=== PATIENT | female | born 1985 | race Caucasian/White ===

== ENCOUNTER 2018-01-26 23:40 | Emergency (ER) | payer OTHER ==
[2018-01-27 00:02] VITALS: PULSE 99; RESP 20; TEMP 97.9
[2018-01-27] MEDS ORDERED: ONDANSETRON 4 MG ODT BU ONE (00:12)
[2018-01-27] MEDS ORDERED: ONDANSETRON 4 MG ODT ONE (00:13)
[2018-01-27] MEDS ORDERED: MAGNESIUM HYDROXIDE 30 ML SUS PO PRN (00:22)
[2018-01-27] MEDS ORDERED: MAGNESIUM HYDROXIDE 30 ML SUS ONE (00:40)
[2018-01-27 00:50] VITALS: BP 115/84; O2SAT 97
[2018-01-27] MEDS ORDERED: BISACODYL 10 MG SUP PR PRN (00:54)
== END 2018-01-27 01:18 | disposition home or self-care (01) | DRG 392 ==
LOC: ED 23:40
DX: R10.9 Unspecified abdominal pain (principal); R11.10 Vomiting, unspecified; R14.0 Abdominal distension (gaseous)
CPT/HCPCS: 74019; 99282; A9270-GY